=== PATIENT | female | born 1955 | race Caucasian/White ===

== ENCOUNTER 2017-04-03 17:32 | Emergency (ER) | payer OTHER ==
[~2017-04-03] VITALS: Ht 157.5 cm; Wt 55.0 kg
[~2017-04-03 17:32] MED LIST: ALBU8.5H5 INH; ALPR0.5T6 PO; AMIO200T PO; AMLO5TAB2 PO; AMOX1TAB64 PO; ASPI325T4 PO; CEFD300C37 PO; CYAN10005 PO; FOLI-17 PO; LISI-170 PO; LISI40TA PO; LORA2TAB99 PO; MAGN400T7 PO; METO50TA82 PO; METR500T PO; NICO1PAT5 TD; OXYC5TAB3 PO; PANT40TA5 PO; QUET100T PO; QUET25TA PO; QUET50TA5 PO; RIVA20TA PO; SERT50TA5 PO; SIMV20TA3 PO; TEMA15CA PO; TEMA15CA6 PO; [UNRECOGNIZED DRUG - REMARK] INH
[2017-04-03] MEDS ORDERED: ONDANSETRON 2MG/ML, 2ML ONE (17:58)
[2017-04-03] MEDS ORDERED: MORPHINE SULFATE 4 MG/ML, 1ML ONE (17:58)
[2017-04-03] MEDS ORDERED: methylPREDNISolone SOD SUCC 125 MG/2 ML ONE (17:58)
[2017-04-03] MEDS ORDERED: methylPREDNISolone SOD SUCC 125 MG/2 ML IVPush SCH (18:00)
[2017-04-03] MEDS ORDERED: MORPHINE SULFATE 4 MG/ML, 1ML IVPush ONE (18:00)
[2017-04-03] MEDS ORDERED: SODIUM CHLORIDE 0.9% 1,000ML IVBOLUS ONE (18:00)
[2017-04-03] MEDS ORDERED: ONDANSETRON 2MG/ML, 2ML IVPush ONE (18:00)
[2017-04-03] MEDS ORDERED: ALBUTEROL/IPRATROPIUM 2.5MG/0.5MG, 3 ML NPPB ONE (18:00)
[2017-04-03] MEDS ORDERED: SODIUM CHLORIDE FLUSH 10ML SYR IVF ONE (18:00)
[2017-04-03 18:34] LABS: BLOOD UREA NITROGEN 17 mg/dL (7-18)
[2017-04-03] MEDS ORDERED: ALBUTEROL/IPRATROPIUM 2.5MG/0.5MG, 3 ML ONE (18:38)
[2017-04-03 19:27] VITALS: BP 163/84
== END 2017-04-03 19:58 | disposition left against medical advice (07) ==
LOC: ED 19:52
DX: G89.11 Acute pain due to trauma (principal); R51 Headache; M53.3 Sacrococcygeal disorders, not elsewhere classified; Z90.49 Acquired absence of other specified parts of digestive tract; E78.00 Pure hypercholesterolemia, unspecified; I10 Essential (primary) hypertension; I48.0 Paroxysmal atrial fibrillation; K52.9 Noninfective gastroenteritis and colitis, unspecified
CPT/HCPCS: 36415; 80048; 80307; 82040; 85025; 85610; 85730; 94640; 96361; 96374; 96375; 99284; J2405; J2930; J7030; J7620

== ENCOUNTER 2017-05-06 15:37 | Emergency (ER) | payer OTHER ==
[~2017-05-06] VITALS: Ht 157.5 cm; Wt 53.5 kg
[2017-05-06 15:57] VITALS: BP 136/81
[2017-05-06 16:12] LABS: HEMATOCRIT 45.7 % (34.6-47.8); HEMOGLOBIN 15.1 g/dL (11.7-16.4); WHITE BLOOD COUNT 7.5 x10^3/uL (3.4-10)
[2017-05-06 16:23] LABS: BLOOD UREA NITROGEN 11 mg/dL (7-18)
[2017-05-06 16:32] LABS: DIFF TOTAL CELLS COUNTED 100 CELL DIFF
[2017-05-06 16:43] LABS: LARGE PLATELETS 1+; VERIFY COUNTS? YES
== END 2017-05-06 19:18 | disposition home or self-care (01) ==
LOC: ED 15:41
DX: F32.9 Major depressive disorder, single episode, unspecified (principal); I48.91 Unspecified atrial fibrillation; E78.00 Pure hypercholesterolemia, unspecified; I48.0 Paroxysmal atrial fibrillation; I10 Essential (primary) hypertension; F41.9 Anxiety disorder, unspecified; F17.200 Nicotine dependence, unspecified, uncomplicated; Z90.49 Acquired absence of other specified parts of digestive tract; Z90.710 Acquired absence of both cervix and uterus; F10.229 Alcohol dependence with intoxication, unspecified
CPT/HCPCS: 36415; 80048; 82040; 85025; 99284

== ENCOUNTER 2017-06-08 17:09 | Inpatient (IN) | payer OTHER ==
[~2017-06-08] VITALS: Ht 157.5 cm; Wt 53.4 kg
[~2017-06-08 17:09] MED LIST changes: +ASPI325T17 PO; -ASPI325T4 PO; +NICO1PAT16 TD; -NICO1PAT5 TD
[2017-06-08] MEDS ORDERED: SODIUM CHLORIDE FLUSH 10ML SYR IVF ONE (17:30)
[2017-06-08] MEDS ORDERED: IBUPROFEN 200 MG TABLET PO ONE (17:30)
[2017-06-08] MEDS ORDERED: SODIUM CHLORIDE 0.9% 1,000ML IVBOLUS ONE (17:30)
[2017-06-08] MEDS ORDERED: IBUPROFEN 200 MG TABLET ONE ×2 (17:53→18:27)
[2017-06-08 18:07] LABS: HEMATOCRIT 41.9 % (34.6-47.8); HEMOGLOBIN 14.1 g/dL (11.7-16.4); WHITE BLOOD COUNT 14.2 x10^3/uL (3.4-10)
[2017-06-08 18:14] LABS: BLOOD UREA NITROGEN 39 mg/dL (7-18)
[2017-06-08 18:19] LABS: ASPARTATE AMINO TRANSFERASE 150 U/L (15-37)
[2017-06-08 18:21] LABS: ACETAMINOPHEN < 2 mcg/mL (10-30)
[2017-06-08] MEDS ORDERED: LORazepam 2 MG/ML, 1ML IVPush ONE (18:30)
[2017-06-08 19:13] LABS: DAU SCREEN DISCLAIMER
[2017-06-08] MEDS ORDERED: LORazepam 2 MG/ML, 1ML ONE (19:32)
[2017-06-08] MEDS ORDERED: LEVOFLOXACIN/PMX 750MG/150ML 150 ML IVPB ONE (20:30)
[2017-06-08] MEDS ORDERED: SODIUM CHLORIDE FLUSH 10ML SYR IVF PRN (20:30)
[2017-06-08] MEDS ORDERED: LEVOFLOXACIN/PMX 750MG/150ML 150 ML ONE (20:49)
[2017-06-08 21:30] VITALS: BP 142/78
[2017-06-08] MEDS ORDERED: ACETAMINOPHEN 325 MG TABLET PO PRN (22:00)
[2017-06-08] MEDS ORDERED: ALBUTEROL SULFATE 2.5 MG/3 ML NPPB PRN (22:00)
[2017-06-08] MEDS ORDERED: LORazepam 0.5MG TABLET PO PRN (22:00)
[2017-06-08] MEDS ORDERED: LORazepam 1MG TABLET PO PRN ×4 (22:00)
[2017-06-08] MEDS ORDERED: MORPHINE SULFATE 4 MG/ML, 1ML IVPush PRN (22:00)
[2017-06-08] MEDS ORDERED: ENALAPRILAT 1.25 MG/ML, 2ML IVPush PRN (22:00)
[2017-06-08] MEDS ORDERED: ONDANSETRON 2MG/ML, 2ML IVPush PRN (22:00)
[2017-06-08] MEDS ORDERED: DOCUSATE 100 MG CAPSULE PO PRN (22:00)
[2017-06-08] MEDS: HEPARIN 5,000 UNITS/ML, 1ML SQ SCH (22:00)
[2017-06-08] MEDS ORDERED: POLYETHYLENE GLYCOL 17 GM PACKET PO PRN (22:00)
[2017-06-08] MEDS ORDERED: LORazepam 2 MG/ML, 1ML IV PRN ×5 (22:00)
[2017-06-08] MEDS ORDERED: BISACODYL 10 MG SUPP PR PRN (22:00)
[2017-06-08] MEDS ORDERED: hydrALAzine 20 MG/ML, 1ML IVPush PRN (22:00)
[2017-06-08] MEDS: PIPERACILLIN/TAZO/PMX 3.375GM 50 ML IV SCH (23:00)
[2017-06-08] MEDS: NICOTINE 21 MG/24 HR PATCH.TD24 TD SCH (23:00)
[2017-06-08] MEDS: SODIUM CHLORIDE 0.9% 1,000 ML IV SCH (23:00)
[2017-06-08] MEDS ORDERED: ALBUTEROL/IPRATROPIUM 2.5MG/0.5MG, 3 ML NPPB PRN (23:00)
[2017-06-09 01:00] VITALS: BP 117/44
[2017-06-09] MEDS: PIPERACILLIN/TAZO/PMX 3.375GM 50 ML IV SCH ×4 (05:00→23:50)
[2017-06-09 05:37] LABS: WHITE BLOOD COUNT 12.6 x10^3/uL (3.4-10)
[2017-06-09] MEDS: ASPIRIN 325 MG TABLET PO SCH (05:42)
[2017-06-09 05:43] VITALS: BP 105/71
[2017-06-09] MEDS: METOPROLOL TARTRATE 50 MG TABLET PO SCH ×2 (05:43→17:45)
[2017-06-09] MEDS: HEPARIN 5,000 UNITS/ML, 1ML SQ SCH ×3 (05:43→21:00)
[2017-06-09 06:19] LABS: ASPARTATE AMINO TRANSFERASE 120 U/L (15-37); BLOOD UREA NITROGEN 34 mg/dL (7-18)
[2017-06-09 06:51] VITALS: BP 126/70
[2017-06-09] MEDS ORDERED: FOLIC ACID 1 MG TABLET PO SCH (09:00)
[2017-06-09] MEDS ORDERED: SERTRALINE 50MG TABLET PO SCH (09:00)
[2017-06-09] MEDS: MAGNESIUM OXIDE 400 MG TABLET PO SCH ×2 (09:59→20:56)
[2017-06-09] MEDS: CYANOCOBALAMIN 1,000 MCG TABLET PO SCH (09:59)
[2017-06-09] MEDS: MULTIVITAMIN 1 TABLET PO SCH (09:59)
[2017-06-09] MEDS: QUETIAPINE 25MG TABLET PO SCH (10:00)
[2017-06-09] MEDS: THIAMINE 100MG TABLET PO SCH (10:00)
[2017-06-09] MEDS: FOLIC ACID 1 MG TABLET PO SCH (10:01)
[2017-06-09] MEDS: PANTOPROZOLE 40MG TABLET PO SCH ×2 (10:01→17:23)
[2017-06-09] MEDS: LISINOPRIL 20 MG TABLET PO SCH (10:02)
[2017-06-09] MEDS: SODIUM CHLORIDE 0.9% 1,000 ML IV SCH (10:19)
[2017-06-09] MEDS ORDERED: CLON1TAB PO (10:31)
[2017-06-09] MEDS ORDERED: LACTULOSE 10 GM/15 ML UDC PO PRN (11:00)
[2017-06-09] MEDS ORDERED: BISACODYL 5 MG EC TABLET PO PRN (11:00)
[2017-06-09] MEDS ORDERED: FOLIC ACID MC SCH (11:00)
[2017-06-09] MEDS: POTASSIUM CHLORIDE 20 MEQ TAB.ER.PRT PO SCH ×2 (11:04→17:23)
[2017-06-09] MEDS: OXYcodone IR 5MG TABLET PO PRN ×2 (12:24→17:23)
[2017-06-09 12:26] VITALS: BP 112/70
[2017-06-09 20:12] VITALS: BP 118/74
[2017-06-09] MEDS: NICOTINE 21 MG/24 HR PATCH.TD24 TD SCH (20:59)
[2017-06-09] MEDS ORDERED: QUETIAPINE 100MG TABLET PO SCH (21:00)
[2017-06-09] MEDS ORDERED: GUAIFENESIN/COD200MG-20MG/10ML LIQUID PO PRN (22:30)
[2017-06-10 02:00] VITALS: BP 126/73
[2017-06-10] MEDS: OXYcodone IR 5MG TABLET PO PRN ×3 (03:39→15:05)
[2017-06-10] MEDS: HEPARIN 5,000 UNITS/ML, 1ML SQ SCH ×2 (05:36→14:55)
[2017-06-10] MEDS: METOPROLOL TARTRATE 50 MG TABLET PO SCH (05:36)
[2017-06-10] MEDS: ASPIRIN 325 MG TABLET PO SCH (05:36)
[2017-06-10] MEDS: PIPERACILLIN/TAZO/PMX 3.375GM 50 ML IV SCH ×2 (05:36→11:00)
[2017-06-10 05:38] VITALS: BP 100/64
[2017-06-10 08:19] VITALS: BP 116/71
[2017-06-10 08:19] LABS: HEMATOCRIT 40.4 % (34.6-47.8); HEMOGLOBIN 13.6 g/dL (11.7-16.4); WHITE BLOOD COUNT 10.3 x10^3/uL (3.4-10)
[2017-06-10 08:29] LABS: BLOOD UREA NITROGEN 14 mg/dL (7-18)
[2017-06-10] MEDS: CYANOCOBALAMIN 1,000 MCG TABLET PO SCH (09:36)
[2017-06-10] MEDS: PANTOPROZOLE 40MG TABLET PO SCH (09:37)
[2017-06-10] MEDS: LISINOPRIL 20 MG TABLET PO SCH (09:38)
[2017-06-10] MEDS: QUETIAPINE 25MG TABLET PO SCH (09:39)
[2017-06-10] MEDS: MULTIVITAMIN 1 TABLET PO SCH (09:39)
[2017-06-10] MEDS: MAGNESIUM OXIDE 400 MG TABLET PO SCH (09:39)
[2017-06-10] MEDS: FOLIC ACID 1 MG TABLET PO SCH (09:40)
[2017-06-10] MEDS: THIAMINE 100MG TABLET PO SCH (09:40)
[2017-06-10 13:03] VITALS: BP 111/66
[2017-06-10] MEDS ORDERED: CEFD300C37 PO (16:14)
[2017-06-10] MEDS ORDERED: METR500T PO (16:14)
== END 2017-06-10 19:03 | disposition home or self-care (01) | DRG 871 ==
LOC: ED 19:10 → EDIP 20:32 → 4WST 21:26 → 4EST 06-09 03:59
PROVIDERS: ADMIT Internal Medicine; ATTEND Internal Medicine
PROC: 0T9B70Z Drainage of Bladder with Drainage Device, Via Natural or Artificial Opening (ICD-10-PCS; principal; 2017-06-08)
DX: A41.9 Sepsis, unspecified organism (principal); N17.0 Acute kidney failure with tubular necrosis; J69.0 Pneumonitis due to inhalation of food and vomit; D68.59 Other primary thrombophilia; E44.0 Moderate protein-calorie malnutrition; S02.32XA Fracture of orbital floor, left side, initial encounter for closed fracture; G31.2 Degeneration of nervous system due to alcohol; I10 Essential (primary) hypertension; I48.0 Paroxysmal atrial fibrillation; E55.9 Vitamin D deficiency, unspecified; D75.89 Other specified diseases of blood and blood-forming organs; Z68.21 Body mass index [BMI] 21.0-21.9, adult; E78.00 Pure hypercholesterolemia, unspecified; E87.6 Hypokalemia; F10.10 Alcohol abuse, uncomplicated; F12.10 Cannabis abuse, uncomplicated; F17.210 Nicotine dependence, cigarettes, uncomplicated; F31.9 Bipolar disorder, unspecified; F41.1 Generalized anxiety disorder; J34.2 Deviated nasal septum; J44.9 Chronic obstructive pulmonary disease, unspecified; K56.41 Fecal impaction; K76.0 Fatty (change of) liver, not elsewhere classified; W19.XXXA Unspecified fall, initial encounter; Z79.82 Long term (current) use of aspirin; Z82.49 Family history of ischemic heart disease and other diseases of the circulatory system; Z86.73 Personal history of transient ischemic attack (TIA), and cerebral infarction without residual deficits; Z90.49 Acquired absence of other specified parts of digestive tract; Z91.19 Patient's noncompliance with other medical treatment and regimen; Z99.81 Dependence on supplemental oxygen; Y93.89 Activity, other specified; Y92.89 Other specified places as the place of occurrence of the external cause; Z90.710 Acquired absence of both cervix and uterus; Z88.8 Allergy status to other drugs, medicaments and biological substances
CPT/HCPCS: 36415; 70450; 70486; 71010; 74000; 80048; 80053; 80061; 80307; 80329; 81001; 82140; 82306; 82607; 82746; 83036; 83605; 83735; 84145; 84439; 84443; 85025; 85610; 85730; 87040; 87070; 87086; 87107; 87205; 87324; 93005; 96361; 96374; 96375; J1644; J1956; J2543; G0480; J2060; J7030

== ENCOUNTER 2018-03-05 12:23 | Emergency (ER) | payer OTHER ==
[~2018-03-05] VITALS: Ht 157.5 cm; Wt 52.7 kg
[~2018-03-05 12:23] MED LIST changes: +CLON1TAB PO; +NICO-487 TD; -NICO1PAT16 TD
[2018-03-05] MEDS ORDERED: ALBUTEROL SULFATE 2.5 MG/3 ML ONE (13:27)
[2018-03-05] MEDS ORDERED: HYDROcodone/APAP 5/325 TABLET PO ONE (13:30)
[2018-03-05] MEDS ORDERED: DEXAMETHASONE 4 MG TABLET PO ONE (13:30)
[2018-03-05] MEDS ORDERED: ALBUTEROL SULFATE 2.5 MG/3 ML NPPB ONE (13:30)
[2018-03-05] MEDS ORDERED: DEXAMETHASONE 4 MG/ML, 5ML ONE (13:41)
[2018-03-05] MEDS ORDERED: HYDROcodone/APAP 5/325 TABLET ONE (13:42)
[2018-03-05] MEDS ORDERED: DEXAMETHASONE 4 MG TABLET ONE ×2 (13:46→14:10)
[2018-03-05 14:03] LABS: ALBUMIN 3.9 g/dL (3.4-5.0); ANION GAP 16 mmol/L (5-15); CHLORIDE 102 mmol/L (98-107); CREATININE 1.02 mg/dL (0.55-1.02)
[2018-03-05 14:09] LABS: MEAN CORPUSCULAR HEMOGLOBIN 35.1 pg (27.0-34.8); MEAN CORPUSCULAR HGB CONC 33.4 g/dL (32.4-35.8); MEAN PLATELET VOLUME 7.8 fL (7.4-10.4); PLATELET COUNT 256 x10^3/uL (130-400); RED BLOOD COUNT 4.25 x10^6/uL (3.82-5.3); RED CELL DISTRIBUTION WIDTH 15.9 % (9.6-15.2)
[2018-03-05 14:41] LABS: BASOPHILS # (AUTO) 0.08 x10^3/uL (0-0.1); BASOPHILS % (AUTO) 0 % (0-1); EOSINOPHILS % (AUTO) 0 % (1-7); LYMPHOCYTES # (AUTO) 1.85 x10^3/uL (1-3.4); LYMPHOCYTES % (AUTO) 9 % (22-44); MD SCAN; MONOCYTES # (AUTO) 1.27 x10^3/uL (0.2-0.8); MONOCYTES % (AUTO) 6 % (2-9); NEUTROPHILS # (AUTO) 17.69 x10^3/uL (1.8-6.8); NEUTROPHILS % (AUTO) 85 % (42-75)
[2018-03-05] MEDS ORDERED: CEFTRIAXONE 1,000 MG ONE (15:11)
[2018-03-05 15:19] VITALS: BP 106/59
[2018-03-05] MEDS ORDERED: CEFTRIAXONE 1,000 MG IM ONE (15:30)
== END 2018-03-05 15:40 | disposition home or self-care (01) ==
LOC: ED 14:58
DX: J44.9 Chronic obstructive pulmonary disease, unspecified (principal); J70.5 Respiratory conditions due to smoke inhalation; I10 Essential (primary) hypertension; F32.9 Major depressive disorder, single episode, unspecified; I48.0 Paroxysmal atrial fibrillation; E78.00 Pure hypercholesterolemia, unspecified; F17.210 Nicotine dependence, cigarettes, uncomplicated; Z99.81 Dependence on supplemental oxygen
CPT/HCPCS: 36415; 71045; 80048; 82040; 82375; 85025; 93005; 94640; 96372; 99285; J0696; J7613